=== PATIENT | male | born 1975 | race Caucasian/White ===

== ENCOUNTER 2023-06-24 19:00 | Observation (INO) | payer OTHER ==
[~2023-06-24] VITALS: Ht 182.9 cm; Wt 83.7 kg
[2023-06-25 01:08] LABS: Mean Corpuscular HGB 31.7 pg (26.0-34.0); Mean Corpuscular HGB Conc 34.2 g/dL (31.5-36.5); Mean Corpuscular Volume 93 fL (80-100); Mean Platelet Volume 8.9 fL (9.1-12.4); Platelet Count 241 K/mm3 (150-400); RDW Coefficient Variation 12.3 % (11.7-14.2); RDW Standard Deviation 42.1 fL (35.1-46.3); White Blood Cell Count 13.11 K/mm3 (4.00-11.30)
[2023-06-25 01:23] LABS: International Normalized Ratio 1.02; Prothrombin Time Results 10.7 Sec (9.7-11.5)
[2023-06-25 01:30] LABS: Albumin, Blood 3.6 g/dL (3.4-5.0); Albumin/Globulin Ratio 1.4 (0.8-1.8); Bilirubin, Total 0.7 mg/dL (0.1-1.0); Bun/Creatinine Ratio 26.9 (12.0-20.0); Calcium, Blood 8.5 mg/dL (8.5-10.1); Creatinine, Blood 0.78 mg/dL (0.60-1.20); Globulin, Blood 2.5 g/dL (2.2-4.0); Potassium, Blood 3.6 mmol/L (3.5-5.5); Total Protein, Blood 6.1 g/dL (6.4-8.2)
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
[2023-06-25 01:58] VITALS: BP 130/87
--- NOTE | 2023-06-25 02:12 | NUR ---
PERSONAL BELONGINGS WHILE ASSISTING THE PATIENT FROM THE MERGED WITH [facility] TO THE SURGICAL BED, IT WAS NOTED THAT THE PATIENT HAS A LOT OF OBJECTS IN HIS POCKETS. WHILE EMPTYING HIS POCKETS TO DISPOSE OF THE CUT UP JEANS, A POUCH WAS NOTED. WHEN MOVED THE POUCH MADE A BROKEN GLASS SOUND. THE POUCH WAS SLIGHTLY UNZIPPED TO MAKE SURE THERE WAS NOTHING BROKEN AND THERE WAS A JAR WITH LARGE WHITE POWDERY CRYSTALS IN IT. THERE WAS A SOCK CUT IN HALF, A PIPE WAS INSIDE OF IT. THE PATIENT ALSO HAD MULTIPLE LIGHTERS AND A PACK OF CIGARETTES IN HIS POCKETS. THESE BELONGINGS WERE PLACED IN A PERSONAL BELINGINGS BAG NEXT TO THE PATIENTS BACK PACK. SECURITY WAS CALLED AND THEY STATED THAT WHEN THEY RETURNED TO CAMPUS THAT THEY WOULD MANAGE THE PATIENTS BELONGINGS.
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
[2023-06-25 08:00] VITALS: BP 122/68
[2023-06-25 09:34] LABS: Source, Urine Clean Catch
[2023-06-25 09:51] LABS: Appearance, Urine Clear (Clear); Bilirubin, Urine Neg (Neg); Blood, Urine Neg (Neg); Color, Urine Yellow (P-Yellow); Glucose Qualitative, Urine 1+ (Neg); Ketones, Urine 1+ (Neg); Leukocyte Esterase, Urine Neg (Neg); Nitrite, Urine Neg (Neg); Protein, Urine 1+ (Neg); Urobilinogen, Urine NORM (Normal)
[2023-06-25 10:06] LABS: U Amphetamine Screen DETECTED; U Barbituate Screen Not Detected; U Benzodiazapine Screen Not Detected; U Buprenorphine Screen Not Detected; U Cannabinoids Screen DETECTED; U Cocaine Screen Not Detected; U Methadone Screen Not Detected; U Methamphetamine Screen DETECTED; U Opiates Screen Not Detected; U Oxycodone Screen Not Detected; U Phencyclidine Screen Not Detected; U Propoxyphene Screen Not Detected
--- NOTE | 2023-06-25 15:18 | NUR ---
SHIFT SUMMARY: BILATERAL TIBIAL FX'S - NONSURGICAL PATIENT IS A&OX4. VS ARE WNL AND IS ON RA. PAIN IS MANAGED WITH PO OXY AND IV FENTANYL. BOTH LEGS ARE IN KNEE IMMOBILIZERS. HE IS ABLE TO MOVE ALL FINGERS AND TOES WHEN ASKED. PEDAL PULSES ARE STRONG AND WARM TO TOUCH. PATIENT WAS ABLE TO WORK WITH PHYSICAL AND OCCUPATIONAL THERAPY TODAY BY GOING TO THE RECLINER CHAIR AND BACK TO BED WITH THE SLIDER BOARD. PATIENT IS TOLERATING PO INTAKE AND IS VOIDING. PATIENT IS LAYING IN BED WITH CALL LIGHT IN REACH AND AT BEDSIDE. THE PLAN IS FOR PATIENT TO DISCHARGE HOME WITH HOME HEALTH ONCE THE SUPPLIES ARE SENT TO THE PATIENTS HOME. OTHERWISE CONTINUING PAIN MANAGEMENT AND TO WORK WITH PHYSICAL AND OCCUPATIONAL THERAPY.
[2023-06-25 15:35] VITALS: BP 117/72
[2023-06-26] VITALS: BP 128/84
[2023-06-26 04:19] VITALS: BP 144/79
--- NOTE | 2023-06-26 04:54 | NUR ---
SHIFT SUMMARY PT NON-SURGICAL BILAT TIBIAL FX. IMMOBILIZERS TO BLE, PT REPORTS FULL SENSATION, NO SIGNIFICANT INCREASE IN PAIN, WIGGLES TOES ON COMMAND, TOWEL ROLL PLACED TO SUPPORT LEGS. PT MEDICATED W/IV FENTANYL X'S 2 WELL PO TYLENOL. PT TOLERATING PO INTAKE WITH NO N/V. PLAN TO CONTINUE TO WORK W/THERAPY. PER MD NOTES ANTICIPATE DC TO SNF.
[2023-06-26 05:17] LABS: Hematocrit 37.9 % (37.0-53.0); Hemoglobin 12.7 g/dL (13.5-17.5); Mean Corpuscular HGB 31.3 pg (26.0-34.0); Mean Corpuscular HGB Conc 33.5 g/dL (31.5-36.5); Mean Corpuscular Volume 93 fL (80-100); Mean Platelet Volume 9.1 fL (9.1-12.4); Platelet Count 194 K/mm3 (150-400); RDW Coefficient Variation 12.2 % (11.7-14.2); RDW Standard Deviation 42.8 fL (35.1-46.3); Red Blood Cell Count 4.06 M/mm3 (4.30-5.90); White Blood Cell Count 8.68 K/mm3 (4.00-11.30)
[2023-06-26 05:36] LABS: Bun/Creatinine Ratio 14.5 (12.0-20.0); Calcium, Blood 8.1 mg/dL (8.5-10.1); Creatinine, Blood 0.76 mg/dL (0.60-1.20); Potassium, Blood 3.6 mmol/L (3.5-5.5)
[2023-06-26 07:10] VITALS: BP 141/81
[2023-06-26 14:39] VITALS: BP 136/74
--- NOTE | 2023-06-26 17:51 | NUR ---
SHIFT SUMMARY PAIN HAS BEEN MANAGED WITH OXYCODONE THIS EVENING. PT HAS PARTICIPATED WITH THERAPY AND WAS ABLE TO SIT UP TO THE RECLINER TODAY. KNEE IMMOBILIZERS REMAIN IN PLACE. PT RESTING IN BED, CALL LIGHT WITHIN REACH.
[2023-06-26 19:11] VITALS: BP 140/81
[2023-06-27 03:57] VITALS: BP 128/89
[2023-06-27 07:47] VITALS: BP 156/83
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
[2023-06-27 15:15] VITALS: BP 159/88
--- NOTE | 2023-06-27 17:02 | NUR ---
SUMMARY NO ACUTE CHANGES T/O SHIFT. PT RESTED IN BED FOR A PERIOD OF TIME WITH IMMOBLIZERS OFF. NOW BACK ON. DEVELOPED BLISTER TO BACK OF LEG WHERE TOP OF IMMOBLIZER RUBS. PLACED BANDAGE OVER BLISTER AND PROTECTIVE MEPILEX OVER AREA FOR COMFORT. MEDICATED PER ORDERS FOR PAIN T/O SHIFT. CALL LIGHT IN REACH.
[2023-06-27 19:38] VITALS: BP 128/90
[2023-06-28 05:30] VITALS: BP 134/89
--- NOTE | 2023-06-28 06:00 | NUR ---
SUMMARY PT HOPING FOR D/C HOME TODAY OR TOMORROW.
[2023-06-28 07:44] VITALS: BP 127/84
[2023-06-28] MEDS ORDERED: ACET500 PO (14:21)
[2023-06-28] MEDS ORDERED: Methocarbamol500 MG PO (14:22)
[2023-06-28] MEDS ORDERED: OXYC10TA19 PO (14:23)
[2023-06-28] MEDS ORDERED: MIRALAX17 GM PO (14:23)
[2023-06-28] MEDS ORDERED: XARELTO10 M5 PO (14:24)
[2023-06-28] MEDS ORDERED: VITAMIN D5000 UNIT PO (14:24)
--- NOTE | 2023-06-28 17:19 | NUR ---
DISCHARGE RIDE ARRIVED. PT ESCORTED OUT VIA WC. PT WAS IND TO TRANSFER SELF TO WC & TO TRANSFER SELF TO VEHICLE.
== END 2023-06-28 17:13 | disposition home or self-care (01) ==
LOC: ER 19:00 → SURS 19:01 → ER 06-25 00:20 → SURS 06-25 00:20
PROVIDERS: Internal Medicine; Orthopaedic Surgery; ADMIT Internal Medicine
DX: S82.145A Nondisplaced bicondylar fracture of left tibia, initial encounter for closed fracture (principal); S82.144A Nondisplaced bicondylar fracture of right tibia, initial encounter for closed fracture; S01.81XA Laceration without foreign body of other part of head, initial encounter; S13.4XXA Sprain of ligaments of cervical spine, initial encounter; S20.212A Contusion of left front wall of thorax, initial encounter; F17.210 Nicotine dependence, cigarettes, uncomplicated; F12.929 Cannabis use, unspecified with intoxication, unspecified; V49.09XA Driver injured in collision with other motor vehicles in nontraffic accident, initial encounter; Y93.84 Activity, sleeping
CPT/HCPCS: 12013; 29505; 36415; 70450; 73562-LT; 73562-RT; 73700; 76377; 80048; 80053; 85027; 85610; 94762; 96372; 96374-59; 96375-59; 96376; 97110; 97162; 97166; 97530; 97535; 99285-25; A9270; G0378; J1644; J1885; J3010; J7120

== ENCOUNTER → 2024-08-02 | Outpatient (CLI) | payer OTHER ==
[~2024-08-02] MED LIST: ACET500 PO; MIRALAX17 GM PO; Methocarbamol500 MG PO; OXYC10TA19 PO; VITAMIN D5000 UNIT PO; XARELTO10 M5 PO
== END ==
LOC: LAB SHORT 15:07 → LAB 15:07
DX: S81.832D Puncture wound without foreign body, left lower leg, subsequent encounter (principal)
CPT/HCPCS: 87070; 87075; 87077; 87186; 87205